=== PATIENT | male | born 1955 | race Caucasian/White ===

== ENCOUNTER 2024-04-08 14:55 | Emergency (ER) | payer SELFPAY ==
[~2024-04-08] VITALS: Ht 182.9 cm; Wt 65.8 kg
[2024-04-08] MEDS ORDERED: FUROSEMIDE 40 MG/4 ML VIAL ONE (15:24)
[2024-04-08] MEDS: FUROSEMIDE 40 MG/4 ML VIAL IV ONE (15:31)
[2024-04-08 15:46] LABS: BASOPHILS % (AUTO) 0.4 % (0.0-2.0); EOSINOPHILS # (AUTO) 0.1 K/uL (0.0-0.7); EOSINOPHILS % (AUTO) 0.6 % (0.0-6.0); HEMATOCRIT 34 % (39-51); HEMOGLOBIN 10.1 g/dL (13.5-17.5); LYMPHOCYTES # (AUTO) 1.3 K/uL (0.8-4.8); LYMPHOCYTES % (AUTO) 14.3 % (20.0-44.0); MEAN CORPUSCULAR HEMOGLOBIN 19 PG (26.0-33.0); MEAN CORPUSCULAR HGB CONC 30 g/dl (31.0-36.0); MEAN CORPUSCULAR VOLUME 65 fL (80-96); MONOCYTES # (AUTO) 0.8 K/uL (0.1-1.30); MONOCYTES % (AUTO) 8.2 % (2.0-12.0); NEUTROPHILS # (AUTO) 7.2 K/uL (1.8-8.9); NEUTROPHILS % (AUTO) 76.5 % (43.0-81.0); PLATELET COUNT (AUTO) 345 K/uL (150-450); RED BLOOD CELL COUNT(AUTO) 5.22 MIL/uL (4.5-6.0); RED CELL DISTRIBUTION WIDTH 18.6 % (11.5-15.0); WHITE BLOOD COUNT (AUTO) 9.4 K/uL (4.3-11.0)
[2024-04-08 15:53] LABS: CALCIUM, SERUM 8.2 mg/dL (8.5-10.1); CREATININE 0.8 mg/dL (0.6-1.3); POTASSIUM 3.5 mmol/L (3.5-5.1)
[2024-04-08 16:05] LABS: ALBUMIN 3.2 g/dL (3.4-5.0); BILIRUBIN,DIRECT 0.2 mg/dL (0.0-0.2); BILIRUBIN,TOTAL 0.9 mg/dL (0.2-1.0); TOTAL PROTEIN, SERUM 7.1 g/dL (6.4-8.2)
[2024-04-08 17:20] VITALS: BP 138/89; TEMP 98.5; O2SAT 98
[2024-04-08 18:30] LABS: ANISOCYTOSIS 1+; LYMPHOCYTES % (MANUAL) 13 % (16-48); MONOCYTES % (MANUAL) 4 % (0-11.0); NEUTROPHILS % (MANUAL) 83 (42-76); PLATELET ESTIMATE ADEQUATE
[2024-04-08 18:31] LABS: OVALOCYTES 1+
== END 2024-04-08 17:21 | disposition home or self-care (01) ==
LOC: ER 14:58
DX: I11.0 Hypertensive heart disease with heart failure (principal); I50.9 Heart failure, unspecified; J81.1 Chronic pulmonary edema; Z60.2 Problems related to living alone
CPT/HCPCS: 99284; 96374; 71045; 85025; 80048; 80076; 36415; 83880; 85007; J1940

== ENCOUNTER 2024-08-16 11:35 | Inpatient (IN) | payer MEDICARE, OTHER ==
[~2024-08-16] VITALS: Ht 182.9 cm; Wt 96.2 kg
[2024-08-16 12:17] LABS: BASOPHILS # (AUTO) 0.1 K/uL (0.0-0.2); BASOPHILS % (AUTO) 0.3 % (0.0-2.0); HEMATOCRIT 32 % (39-51); HEMOGLOBIN 9.9 g/dL (13.5-17.5); LYMPHOCYTES # (AUTO) 0.6 K/uL (0.8-4.8); LYMPHOCYTES % (AUTO) 2.4 % (20.0-44.0); MEAN CORPUSCULAR HEMOGLOBIN 22 PG (26.0-33.0); MEAN CORPUSCULAR HGB CONC 31 g/dl (31.0-36.0); MEAN CORPUSCULAR VOLUME 71 fL (80-96); MONOCYTES # (AUTO) 1.1 K/uL (0.1-1.30); MONOCYTES % (AUTO) 4.6 % (2.0-12.0); NEUTROPHILS % (AUTO) 92.7 % (43.0-81.0); PLATELET COUNT (AUTO) 451 K/uL (150-450); RED BLOOD CELL COUNT(AUTO) 4.44 MIL/uL (4.5-6.0); RED CELL DISTRIBUTION WIDTH 18.1 % (11.5-15.0); WHITE BLOOD COUNT (AUTO) 24.8 K/uL (4.3-11.0)
[2024-08-16 12:36] LABS: INR 1.13 (0.91-1.10); PARTIAL THROMBOPLASTIN TIME 25.4 SEC (24.3-34.3); PROTHROMBIN TIME 11.9 SECS (9.2-11.1)
[2024-08-16 12:44] LABS: CALCIUM, SERUM 8.1 mg/dL (8.5-10.1); CARBON DIOXIDE 28 mmol/L (21-32); CHLORIDE 99 mmol/L (98-107); CREATININE 0.9 mg/dL (0.6-1.3); GLUCOSE 103 mg/dL (74-106); POTASSIUM 3.7 mmol/L (3.5-5.1); SODIUM SERUM 135 mmol/L (136-145); UREA NITROGEN, BLOOD 8 mg/dL (7-18)
[2024-08-16 12:49] LABS: ALANINE AMINOTRANSFERASE 12 U/L (12-78); ALKALINE PHOSPHATASE 71 U/L (46-116); ASPARTATE AMINOTRANSFERASE 16 U/L (15-37); BILIRUBIN,DIRECT 0.3 mg/dL (0.0-0.2); BILIRUBIN,TOTAL 1.2 mg/dL (0.2-1.0); TOTAL PROTEIN, SERUM 6.9 g/dL (6.4-8.2)
[2024-08-16 12:57] LABS: THYROID STIMULATING HORMONE 0.37 uIU/mL (0.358-3.74)
[2024-08-16 13:06] LABS: APPEARANCE,URINE CLEAR (CLEAR); BILIRUBIN,URINE NEGATIVE (NEGATIVE); BLOOD, URINE NEGATIVE Ery/uL (NEGATIVE); COLOR,URINE YELLOW (YELLOW); KETONES,URINE NEGATIVE (NEGATIVE); LEUKOCYTE ESTERASE ,URINE NEGATIVE (NEGATIVE); NITRITE, URINE NEGATIVE (NEGATIVE); PROTEIN,URINE NEGATIVE (NEGATIVE); UGLUCOSE NEGATIVE (NEGATIVE)
[2024-08-16] MEDS ORDERED: CEFTRIAXONE 1GM BAG (ER ONLY) 50 ML IV ONE (13:09)
[2024-08-16] MEDS ORDERED: ASPIRIN 81 MG TAB.CHEW ONE (13:09)
[2024-08-16] MEDS: ASPIRIN 81 MG TAB.CHEW PO ONE (13:17)
[2024-08-16] MEDS: CEFTRIAXONE 1 G in IV D5W 50 ML IV ONE (13:17)
[2024-08-16] MEDS ORDERED: LISI10TA29 PO (13:25)
[2024-08-16] MEDS: AZITHROMYCIN 500 MG in IV D5W 250 ML IV ONE (13:34)
[2024-08-16 14:21] LABS: ADD URINE CULTURE NO; BACTERIA,URINE Few /HPF (None Seen); RBC,URINE 0-2 /HPF (0-2); SQUAMOUS EPITHELIAL CELL,UR Few /HPF (None Seen); WBC,URINE 0-2 /HPF (0-3)
[2024-08-16] MEDS ORDERED: ONDANSETRON HCL/PF 4 MG/2 ML VIAL IVP PRN (15:00)
[2024-08-16] MEDS ORDERED: MAGNESIUM HYDROXIDE 30 ML UDC PO PRN (15:00)
[2024-08-16] MEDS ORDERED: Z GUARD REMEDY 4 OZ OINT TP PRN (15:00)
[2024-08-16 16:00] VITALS: BP 126/96; TEMP 99.3; O2SAT 95
[2024-08-16] MEDS: ENOXAPARIN SODIUM 40 MG/0.4 ML DISP.SYRIN SQ SCH (16:44)
[2024-08-16] MEDS: FUROSEMIDE 40 MG/4 ML VIAL IV STA (16:54)
[2024-08-16] MEDS: PIPERACILLIN /TAZOBACTAM 3.375 G in IV D5W 50 ML IV SCH (17:53)
[2024-08-16] MEDS: ACETAMINOPHEN 325 MG TABLET PO PRN (17:56)
[2024-08-16 21:18] VITALS: BP 126/96; TEMP 98.1; O2SAT 95
[2024-08-17 01:11] VITALS: BP 115/81; TEMP 97.6; O2SAT 100
[2024-08-17 04:00] VITALS: BP 124/96; TEMP 98.1; O2SAT 100
[2024-08-17 06:40] LABS: BASOPHILS % (AUTO) 0.1 % (0.0-2.0); HEMATOCRIT 30 % (39-51); HEMOGLOBIN 9.5 g/dL (13.5-17.5); LYMPHOCYTES # (AUTO) 1.1 K/uL (0.8-4.8); LYMPHOCYTES % (AUTO) 5.6 % (20.0-44.0); MEAN CORPUSCULAR HEMOGLOBIN 22 PG (26.0-33.0); MEAN CORPUSCULAR HGB CONC 32 g/dl (31.0-36.0); MEAN CORPUSCULAR VOLUME 71 fL (80-96); MONOCYTES # (AUTO) 1.1 K/uL (0.1-1.30); MONOCYTES % (AUTO) 5.8 % (2.0-12.0); NEUTROPHILS # (AUTO) 17.2 K/uL (1.8-8.9); NEUTROPHILS % (AUTO) 88.5 % (43.0-81.0); PLATELET COUNT (AUTO) 411 K/uL (150-450); RED BLOOD CELL COUNT(AUTO) 4.26 MIL/uL (4.5-6.0); RED CELL DISTRIBUTION WIDTH 17.7 % (11.5-15.0); WHITE BLOOD COUNT (AUTO) 19.4 K/uL (4.3-11.0)
[2024-08-17 06:56] LABS: CALCIUM, SERUM 8.4 mg/dL (8.5-10.1); CREATININE 0.8 mg/dL (0.6-1.3); MAGNESIUM 1.7 mg/dL (1.8-2.4); PHOSPHORUS 2.7 mg/dL (2.5-4.9); POTASSIUM 3.4 mmol/L (3.5-5.1)
[2024-08-17 08:00] VITALS: BP 100/83; TEMP 97.8; O2SAT 100
[2024-08-17 08:02] LABS: THYROID STIMULATING HORMONE 0.21 uIU/mL (0.358-3.74)
[2024-08-17] MEDS: PANTOPRAZOLE 40 MG TABLET.DR PO SCH (08:39)
[2024-08-17] MEDS: MAGNESIUM OXIDE 400 MG TABLET PO ONE (10:02)
[2024-08-17] MEDS: POTASSIUM CHLORIDE 20 MEQ TAB.PRT.SR PO SCH (10:02)
[2024-08-17 12:00] VITALS: BP 135/86; TEMP 97.8; O2SAT 100
[2024-08-17] MEDS: SOD FERRIC GLUC 125 MG in IV NS 0.9% 100 ML IV SCH (13:25)
[2024-08-17 16:00] VITALS: BP 120/76; TEMP 98.4; O2SAT 98
[2024-08-17 20:00] VITALS: BP 118/56; TEMP 98.3; O2SAT 97
[2024-08-18] VITALS (8 sets, daily range): BP systolic 101–184; BP diastolic 62–136; TEMP 98.1–98.9; O2SAT 92–98
[2024-08-18] MEDS: ZOLPIDEM TARTRATE 5 MG TABLET PO PRN (01:41)
[2024-08-18 06:03] LABS: BASOPHILS % (AUTO) 0.2 % (0.0-2.0); HEMATOCRIT 32 % (39-51); HEMOGLOBIN 10.2 g/dL (13.5-17.5); LYMPHOCYTES # (AUTO) 1.1 K/uL (0.8-4.8); LYMPHOCYTES % (AUTO) 5.2 % (20.0-44.0); MEAN CORPUSCULAR HEMOGLOBIN 22 PG (26.0-33.0); MEAN CORPUSCULAR HGB CONC 32 g/dl (31.0-36.0); MEAN CORPUSCULAR VOLUME 69 fL (80-96); MONOCYTES # (AUTO) 1.1 K/uL (0.1-1.30); MONOCYTES % (AUTO) 5.7 % (2.0-12.0); NEUTROPHILS % (AUTO) 88.9 % (43.0-81.0); PLATELET COUNT (AUTO) 375 K/uL (150-450); RED BLOOD CELL COUNT(AUTO) 4.55 MIL/uL (4.5-6.0); RED CELL DISTRIBUTION WIDTH 17.7 % (11.5-15.0); WHITE BLOOD COUNT (AUTO) 20.2 K/uL (4.3-11.0)
[2024-08-18 06:12] LABS: CALCIUM, SERUM 8.4 mg/dL (8.5-10.1); CREATININE 0.8 mg/dL (0.6-1.3); MAGNESIUM 1.9 mg/dL (1.8-2.4); PHOSPHORUS 2.5 mg/dL (2.5-4.9); POTASSIUM 3.6 mmol/L (3.5-5.1)
[2024-08-18 06:22] LABS: THYROID STIMULATING HORMONE 0.38 uIU/mL (0.358-3.74)
[2024-08-18 07:58] LABS: BAND % (MANUAL) 1 % (0.0-5.0); LYMPHOCYTES % (MANUAL) 5 % (16-48); MONOCYTES % (MANUAL) 5 % (0-11.0); NEUTROPHILS % (MANUAL) 89 (42-76)
[2024-08-18 07:59] LABS: ANISOCYTOSIS 1+; HYPOCHROMASIA 1+; OVALOCYTES 1+; PLATELET ESTIMATE ADEQUATE
[2024-08-18] MEDS: METOPROLOL SUCCINATE 50 MG TAB.SR.24H PO SCH (10:29)
[2024-08-18] MEDS ORDERED: CEFEPIME 1 GM in IV D5W 50 ML IV SCH (17:30)
[2024-08-18] MEDS: LEVOFLOXACIN (250MG) 250 MG TABLET PO SCH (18:23)
[2024-08-18] MEDS: CEFEPIME 2 GM in IV D5W 100 ML IV SCH (18:53)
[2024-08-18] MEDS ORDERED: hydrALAZINE HCL IV 20 MG VIAL IV PRN (20:30)
[2024-08-19] VITALS: BP 103/80; TEMP 98; O2SAT 97
[2024-08-19 04:00] VITALS: BP 115/87; TEMP 97.6; O2SAT 98
[2024-08-19 06:32] LABS: BASOPHILS % (AUTO) 0.3 % (0.0-2.0); EOSINOPHILS # (AUTO) 0.1 K/uL (0.0-0.7); EOSINOPHILS % (AUTO) 0.5 % (0.0-6.0); HEMATOCRIT 33 % (39-51); HEMOGLOBIN 10.5 g/dL (13.5-17.5); LYMPHOCYTES # (AUTO) 1.3 K/uL (0.8-4.8); LYMPHOCYTES % (AUTO) 10.3 % (20.0-44.0); MEAN CORPUSCULAR HEMOGLOBIN 22 PG (26.0-33.0); MEAN CORPUSCULAR HGB CONC 32 g/dl (31.0-36.0); MEAN CORPUSCULAR VOLUME 70 fL (80-96); MONOCYTES % (AUTO) 7.5 % (2.0-12.0); NEUTROPHILS # (AUTO) 10.7 K/uL (1.8-8.9); NEUTROPHILS % (AUTO) 81.4 % (43.0-81.0); PLATELET COUNT (AUTO) 392 K/uL (150-450); RED BLOOD CELL COUNT(AUTO) 4.74 MIL/uL (4.5-6.0); RED CELL DISTRIBUTION WIDTH 17.8 % (11.5-15.0); WHITE BLOOD COUNT (AUTO) 13.2 K/uL (4.3-11.0)
[2024-08-19 08:00] VITALS: BP 113/75; TEMP 98.5; O2SAT 98
[2024-08-19] MEDS: LISINOPRIL (10MG) 10 MG TABLET PO SCH (08:23)
[2024-08-19 08:28] LABS: THYROID STIMULATING HORMONE 1.05 uIU/mL (0.358-3.74); URIC ACID 4.9 mg/dL (2.6-7.2)
[2024-08-19 08:29] LABS: CALCIUM, SERUM 8.6 mg/dL (8.5-10.1); CREATININE 0.7 mg/dL (0.6-1.3); MAGNESIUM 2.2 mg/dL (1.8-2.4); PHOSPHORUS 2.3 mg/dL (2.5-4.9); POTASSIUM 3.4 mmol/L (3.5-5.1)
[2024-08-19] MEDS: POTASSIUM CHLORIDE 20 MEQ TAB.PRT.SR PO SCH (11:25)
[2024-08-19] MEDS ORDERED: METO-357 PO ×2 (11:41→11:43)
[2024-08-19] MEDS ORDERED: LEVO500T90 PO (11:41)
[2024-08-19 12:00] VITALS: BP 130/90; TEMP 97.4; O2SAT 97
[2024-08-19 16:00] VITALS: BP 93/66; TEMP 98.2; O2SAT 98
[2024-08-19] MEDS: K PHOS NEUTRAL 250 MG TABLET PO ONE (16:26)
== END 2024-08-19 17:19 | disposition home health service (06) | DRG 871 ==
LOC: ER 11:46 → TELE1 13:04
PROVIDERS: ADMIT Nurse Practitioner Family; ATTEND Nurse Practitioner Family
DX: A41.9 Sepsis, unspecified organism (principal); I21.A1 Myocardial infarction type 2; J15.9 Unspecified bacterial pneumonia; E87.1 Hypo-osmolality and hyponatremia; I50.9 Heart failure, unspecified; I11.0 Hypertensive heart disease with heart failure; E78.5 Hyperlipidemia, unspecified; Z79.899 Other long term (current) drug therapy; N50.89 Other specified disorders of the male genital organs; D75.839 Thrombocytosis, unspecified; D50.9 Iron deficiency anemia, unspecified; E80.6 Other disorders of bilirubin metabolism; E66.9 Obesity, unspecified; Z68.28 Body mass index [BMI] 28.0-28.9, adult; N45.1 Epididymitis; F17.200 Nicotine dependence, unspecified, uncomplicated; I49.3 Ventricular premature depolarization; K76.0 Fatty (change of) liver, not elsewhere classified; N43.3 Hydrocele, unspecified; R62.7 Adult failure to thrive
CPT/HCPCS: 36415; 71045-TC; 71250-TC; 76870-TC; 80048-TC; 80061-TC; 80076-TC; 81001; 82728-TC; 82962-TC; 83540-TC; 83605-TC; 83735-TC; 83880; 84100-TC; 84439-TC; 84443-TC; 84481; 84484-TC; 84550-TC; 85025-TC; 85730-TC; 86850; 86850-TC; 86860; 86870; 86880; 86900; 86901; 86905; 86906; 86970; 87040-TC; 93307-TC; 93970-TC; 97112-TC; 97116-TC; 97530-TC; A4223; G0378; J0456; J0692; J0696; J1650; J2543; J2916; J7030; J7060

== ENCOUNTER 2024-10-09 08:35 | Inpatient (IN) | payer MEDICARE, OTHER ==
[~2024-10-09] VITALS: Ht 182.9 cm; Wt 94.0 kg
[~2024-10-09 08:35] MED LIST: LEVO500T90 PO; LISI10TA29 PO; METO-357 PO
[2024-10-09 09:02] LABS: BASOPHILS % (AUTO) 0.5 % (0.0-2.0); EOSINOPHILS % (AUTO) 0.6 % (0.0-6.0); HEMATOCRIT 36 % (39-51); LYMPHOCYTES # (AUTO) 1.3 K/uL (0.8-4.8); LYMPHOCYTES % (AUTO) 14.6 % (20.0-44.0); MEAN CORPUSCULAR HEMOGLOBIN 23 PG (26.0-33.0); MEAN CORPUSCULAR HGB CONC 31 g/dl (31.0-36.0); MEAN CORPUSCULAR VOLUME 74 fL (80-96); MONOCYTES # (AUTO) 0.6 K/uL (0.1-1.30); MONOCYTES % (AUTO) 6.7 % (2.0-12.0); NEUTROPHILS # (AUTO) 6.9 K/uL (1.8-8.9); NEUTROPHILS % (AUTO) 77.6 % (43.0-81.0); PLATELET COUNT (AUTO) 380 K/uL (150-450); RED BLOOD CELL COUNT(AUTO) 4.79 MIL/uL (4.5-6.0); RED CELL DISTRIBUTION WIDTH 19.6 % (11.5-15.0); WHITE BLOOD COUNT (AUTO) 8.8 K/uL (4.3-11.0)
[2024-10-09] MEDS ORDERED: ACETAMINOPHEN 325 MG TABLET PO PRN (09:30)
[2024-10-09] MEDS ORDERED: ONDANSETRON HCL/PF 4 MG/2 ML VIAL IVP PRN (09:30)
[2024-10-09] MEDS ORDERED: MORPHINE SULFATE INJ 2 MG/ML DISP.SYRIN IV PRN (09:30)
[2024-10-09] MEDS ORDERED: ALBUTEROL FS 2.5 MG/0.5 ML VIAL.NEB NEB PRN (09:30)
[2024-10-09] MEDS ORDERED: FUROSEMIDE 40 MG/4 ML VIAL ONE (09:42)
[2024-10-09 09:45] LABS: CALCIUM, SERUM 8.6 mg/dL (8.5-10.1); CARBON DIOXIDE 22 mmol/L (21-32); CHLORIDE 105 mmol/L (98-107); CREATININE 1.4 mg/dL (0.6-1.3); GLUCOSE 127 mg/dL (74-106); POTASSIUM 4.5 mmol/L (3.5-5.1); SODIUM SERUM 139 mmol/L (136-145); UREA NITROGEN, BLOOD 23 mg/dL (7-18)
[2024-10-09 09:46] LABS: LACTIC ACID 2.4 mmol/L (0.4-2.0)
[2024-10-09] MEDS: FUROSEMIDE 40 MG/4 ML VIAL IV ONE (09:57)
[2024-10-09 10:00] LABS: ALANINE AMINOTRANSFERASE 23 U/L (12-78); ALBUMIN 3.6 g/dL (3.4-5.0); ALKALINE PHOSPHATASE 76 U/L (46-116); ASPARTATE AMINOTRANSFERASE 25 U/L (15-37); BILIRUBIN,DIRECT 0.3 mg/dL (0.0-0.2); BILIRUBIN,TOTAL 1.2 mg/dL (0.2-1.0); NT-PRO BNP 5600 pg/mL (0-125); TOTAL PROTEIN, SERUM 8.1 g/dL (6.4-8.2)
[2024-10-09] MEDS ORDERED: LEVOFLOXACIN 750 MG /D5W 150ML 150 ML IV ONE (10:31)
[2024-10-09] MEDS: LEVOFLOXACIN 500 MG /D5W 100ML 500 MG in PREMIX 1 EA IV ONE (10:40)
[2024-10-09] MEDS ORDERED: CT SWABBABLE VALVE TRANS SET 1 EA INFUS.SET MC ONE (11:00)
[2024-10-09] MEDS ORDERED: IV NS 0.9% 250 ML IV ONE (11:00)
[2024-10-09] MEDS ORDERED: LEVOFLOXACIN 750 MG /D5W 150ML 750 MG in PREMIX 1 EA IV SCH (11:00)
[2024-10-09] MEDS ORDERED: IOHEXOL-350 100 ML VIAL IV ONE (11:00)
[2024-10-09 12:00] VITALS: BP 106/87; TEMP 97.4; O2SAT 100
[2024-10-09 12:16] LABS: IRON, SERUM 15 ug/dl (50-175); TOTAL IRON BINDING CAPACITY 513 ug/dl (250-450)
[2024-10-09] MEDS: LEVOFLOXACIN 250 MG /D5W 50 ML 250 MG in PREMIX 1 EA IV ONE (12:29)
[2024-10-09 12:30] LABS: FERRITIN 53 ng/mL (8-388)
[2024-10-09 16:00] VITALS: BP 113/89; TEMP 97.9; O2SAT 98
[2024-10-09] MEDS: FUROSEMIDE 20 MG/2 ML VIAL IV SCH (16:13)
[2024-10-09 20:00] VITALS: BP 113/89; TEMP 98.6; O2SAT 100
[2024-10-09] MEDS: HEPARIN SODIUM, PORCINE 5000 UNITS/1 ML VIAL SQ SCH (21:32)
[2024-10-10] VITALS: BP 126/93; TEMP 97.5; O2SAT 98
[2024-10-10 04:00] VITALS: BP 117/88; TEMP 97.7; O2SAT 100
[2024-10-10 07:31] LABS: BASOPHILS % (AUTO) 0.4 % (0.0-2.0); EOSINOPHILS % (AUTO) 0.4 % (0.0-6.0); HEMATOCRIT 33 % (39-51); HEMOGLOBIN 10.5 g/dL (13.5-17.5); LYMPHOCYTES # (AUTO) 1.5 K/uL (0.8-4.8); LYMPHOCYTES % (AUTO) 18.1 % (20.0-44.0); MEAN CORPUSCULAR HEMOGLOBIN 23 PG (26.0-33.0); MEAN CORPUSCULAR HGB CONC 32 g/dl (31.0-36.0); MEAN CORPUSCULAR VOLUME 73 fL (80-96); MONOCYTES # (AUTO) 0.7 K/uL (0.1-1.30); MONOCYTES % (AUTO) 8.7 % (2.0-12.0); NEUTROPHILS # (AUTO) 6.1 K/uL (1.8-8.9); NEUTROPHILS % (AUTO) 72.4 % (43.0-81.0); PLATELET COUNT (AUTO) 304 K/uL (150-450); RED BLOOD CELL COUNT(AUTO) 4.53 MIL/uL (4.5-6.0); WHITE BLOOD COUNT (AUTO) 8.4 K/uL (4.3-11.0)
[2024-10-10 07:50] LABS: ALBUMIN 3.1 g/dL (3.4-5.0); BILIRUBIN,TOTAL 1.9 mg/dL (0.2-1.0); CALCIUM, SERUM 8.3 mg/dL (8.5-10.1); CREATININE 1.3 mg/dL (0.6-1.3); MAGNESIUM 1.9 mg/dL (1.8-2.4); PHOSPHORUS 3.5 mg/dL (2.5-4.9); POTASSIUM 4.1 mmol/L (3.5-5.1); TOTAL PROTEIN, SERUM 7.1 g/dL (6.4-8.2)
[2024-10-10 08:00] VITALS: BP 120/94; TEMP 97.4; O2SAT 100
[2024-10-10] MEDS: METOPROLOL SUCCINATE 50 MG TAB.SR.24H PO SCH (08:23)
[2024-10-10] MEDS: LISINOPRIL (10MG) 10 MG TABLET PO SCH (08:23)
[2024-10-10 10:27] LABS: ABG BASE EXCESS -2.6 mmol/L (-2.0-3.0); ABG OXYGEN SATURATION 88.2 % (94.0-98.0); ABG PCO2 27.5 mmHg (35.0-48.0); ABG PH 7.476 (7.350-7.450); ABG PO2 55.6 mmHg (83.0-108.0); ABG TOTAL HEMOGLOBIN 11.8 G/dL (13.5-17.5); COHb 0.9 % (0.5-1.5); MetHb 0.3 % (0.0-1.5); O2Hb 87.1 % (94.0-97.0); SITE, ABG RIGHT RADIAL
[2024-10-10 12:00] VITALS: BP 112/85; TEMP 97.7; O2SAT 99
[2024-10-10 16:00] VITALS: BP 99/74; TEMP 97.9; O2SAT 96
[2024-10-10 20:00] VITALS: BP 113/88; TEMP 97.7; O2SAT 96
[2024-10-11] VITALS: BP 125/94; TEMP 97; O2SAT 97
[2024-10-11 04:00] VITALS: BP 104/72; TEMP 98.8; O2SAT 98
[2024-10-11 08:00] VITALS: BP 128/90; TEMP 98.6; O2SAT 99
[2024-10-11 10:17] LABS: BASOPHILS % (AUTO) 0.1 % (0.0-2.0); HEMATOCRIT 37 % (39-51); HEMOGLOBIN 11.3 g/dL (13.5-17.5); LYMPHOCYTES # (AUTO) 1.8 K/uL (0.8-4.8); LYMPHOCYTES % (AUTO) 11.9 % (20.0-44.0); MEAN CORPUSCULAR HEMOGLOBIN 23 PG (26.0-33.0); MEAN CORPUSCULAR HGB CONC 31 g/dl (31.0-36.0); MEAN CORPUSCULAR VOLUME 74 fL (80-96); MONOCYTES # (AUTO) 1.5 K/uL (0.1-1.30); MONOCYTES % (AUTO) 10.4 % (2.0-12.0); NEUTROPHILS # (AUTO) 11.4 K/uL (1.8-8.9); NEUTROPHILS % (AUTO) 77.6 % (43.0-81.0); PLATELET COUNT (AUTO) 301 K/uL (150-450); RED BLOOD CELL COUNT(AUTO) 4.97 MIL/uL (4.5-6.0); RED CELL DISTRIBUTION WIDTH 18.9 % (11.5-15.0); WHITE BLOOD COUNT (AUTO) 14.7 K/uL (4.3-11.0)
[2024-10-11 10:44] LABS: CALCIUM, SERUM 8.7 mg/dL (8.5-10.1); CREATININE 1.5 mg/dL (0.6-1.3); POTASSIUM 5.3 mmol/L (3.5-5.1)
[2024-10-11 10:51] LABS: ALBUMIN 3.3 g/dL (3.4-5.0); BILIRUBIN,TOTAL 3.4 mg/dL (0.2-1.0); MAGNESIUM 2.3 mg/dL (1.8-2.4); PHOSPHORUS 4.9 mg/dL (2.5-4.9); TOTAL PROTEIN, SERUM 7.2 g/dL (6.4-8.2)
[2024-10-11 12:00] VITALS: BP 111/80; TEMP 97.3; O2SAT 97
[2024-10-11 16:00] VITALS: BP 124/84; TEMP 97.4; O2SAT 97
[2024-10-11] MEDS: SODIUM ZIRCONIUM CYCLOSILICATE 10 GM POWD.PACK PO SCH (16:14)
[2024-10-11 20:00] VITALS: BP 117/87; TEMP 97.6; O2SAT 97
[2024-10-12] VITALS: BP 119/85; TEMP 98; O2SAT 96
[2024-10-12 04:00] VITALS: BP 122/86; TEMP 98; O2SAT 97
[2024-10-12 08:00] VITALS: BP 125/80; TEMP 98.4; O2SAT 94
[2024-10-12 08:43] LABS: BASOPHILS % (AUTO) 0.3 % (0.0-2.0); EOSINOPHILS % (AUTO) 0.3 % (0.0-6.0); HEMATOCRIT 36 % (39-51); HEMOGLOBIN 11.3 g/dL (13.5-17.5); LYMPHOCYTES # (AUTO) 1.8 K/uL (0.8-4.8); MEAN CORPUSCULAR HEMOGLOBIN 23 PG (26.0-33.0); MEAN CORPUSCULAR HGB CONC 32 g/dl (31.0-36.0); MEAN CORPUSCULAR VOLUME 72 fL (80-96); MONOCYTES # (AUTO) 0.9 K/uL (0.1-1.30); MONOCYTES % (AUTO) 7.9 % (2.0-12.0); NEUTROPHILS # (AUTO) 8.4 K/uL (1.8-8.9); NEUTROPHILS % (AUTO) 75.5 % (43.0-81.0); PLATELET COUNT (AUTO) 282 K/uL (150-450); RED BLOOD CELL COUNT(AUTO) 4.95 MIL/uL (4.5-6.0); RED CELL DISTRIBUTION WIDTH 19.2 % (11.5-15.0); WHITE BLOOD COUNT (AUTO) 11.2 K/uL (4.3-11.0)
[2024-10-12] MEDS: FUROSEMIDE 20 MG TABLET PO SCH (09:08)
[2024-10-12 09:11] LABS: BILIRUBIN,DIRECT 0.8 mg/dL (0.0-0.2); BILIRUBIN,TOTAL 3.1 mg/dL (0.2-1.0); TOTAL PROTEIN, SERUM 6.5 g/dL (6.4-8.2)
[2024-10-12 11:01] LABS: CALCIUM, SERUM 8.5 mg/dL (8.5-10.1); CREATININE 1.3 mg/dL (0.6-1.3); PHOSPHORUS 3.2 mg/dL (2.5-4.9); POTASSIUM 3.7 mmol/L (3.5-5.1)
[2024-10-12 11:02] LABS: MAGNESIUM 2.2 mg/dL (1.8-2.4)
[2024-10-12 16:00] VITALS: BP 96/60; TEMP 97.3; O2SAT 97
[2024-10-12 20:00] VITALS: BP 120/87; TEMP 98.1; O2SAT 95
[2024-10-13 04:00] VITALS: BP 106/74; TEMP 98.1; O2SAT 95
[2024-10-13 08:00] VITALS: BP 113/79; TEMP 98; O2SAT 97
[2024-10-13 08:07] LABS: INR 1.57 (0.91-1.10); PROTHROMBIN TIME 16.2 SECS (9.2-11.1)
[2024-10-13 08:23] LABS: ALBUMIN 2.7 g/dL (3.4-5.0); BILIRUBIN,DIRECT 0.7 mg/dL (0.0-0.2); BILIRUBIN,TOTAL 2.6 mg/dL (0.2-1.0); TOTAL PROTEIN, SERUM 6.1 g/dL (6.4-8.2)
[2024-10-13 08:27] LABS: APPEARANCE,URINE CLEAR (CLEAR); BILIRUBIN,URINE NEGATIVE (NEGATIVE); BLOOD, URINE NEGATIVE Ery/uL (NEGATIVE); COLOR,URINE DARK YELLOW (YELLOW); KETONES,URINE NEGATIVE (NEGATIVE); LEUKOCYTE ESTERASE ,URINE NEGATIVE (NEGATIVE); NITRITE, URINE NEGATIVE (NEGATIVE); PROTEIN,URINE NEGATIVE (NEGATIVE); UGLUCOSE NEGATIVE (NEGATIVE)
[2024-10-13 09:18] LABS: ADD URINE CULTURE NO; BACTERIA,URINE Rare /HPF (None Seen); RBC,URINE 0-2 /HPF (0-2); SQUAMOUS EPITHELIAL CELL,UR None Seen /HPF (None Seen); WBC,URINE 0-2 /HPF (0-3)
[2024-10-13 16:00] VITALS: BP 103/77; TEMP 97.5; O2SAT 97
[2024-10-14 04:00] VITALS: BP 112/84; TEMP 97.2; O2SAT 95
[2024-10-14 07:45] LABS: ALBUMIN 2.8 g/dL (3.4-5.0); BILIRUBIN,DIRECT 0.7 mg/dL (0.0-0.2); BILIRUBIN,TOTAL 2.5 mg/dL (0.2-1.0); TOTAL PROTEIN, SERUM 6.3 g/dL (6.4-8.2)
[2024-10-14 07:59] LABS: INR 1.33 (0.91-1.10); PROTHROMBIN TIME 13.8 SECS (9.2-11.1)
[2024-10-14 08:00] VITALS: BP 115/71; TEMP 97.6; O2SAT 98
[2024-10-14 16:00] VITALS: BP 115/71; TEMP 97.4; O2SAT 98
[2024-10-14 20:00] VITALS: BP 103/70; TEMP 97.3; O2SAT 99
[2024-10-15 00:15] LABS: HBSAG SCREEN Negative (Negative); HEPATITIS A AB, IgM Negative (Negative); HEPATITIS B CORE AB, IgM Negative (Negative)
[2024-10-15 04:00] VITALS: BP 101/66; TEMP 97.7; O2SAT 96
[2024-10-15 08:23] LABS: CALCIUM, SERUM 8.1 mg/dL (8.5-10.1); CREATININE 0.9 mg/dL (0.6-1.3); POTASSIUM 3.3 mmol/L (3.5-5.1)
[2024-10-15 08:27] LABS: ALBUMIN 2.9 g/dL (3.4-5.0); BILIRUBIN,TOTAL 2.4 mg/dL (0.2-1.0); TOTAL PROTEIN, SERUM 6.6 g/dL (6.4-8.2)
[2024-10-15 09:18] VITALS: BP 125/75
[2024-10-15] MEDS: POTASSIUM CHLORIDE 20 MEQ TAB.PRT.SR PO SCH (10:31)
== END 2024-10-15 13:24 | disposition home or self-care (01) | DRG 291 ==
LOC: ER 08:36 → TELE1 10:00 → MEDSG1 10-12 09:30
PROVIDERS: ADMIT Internal Medicine; ATTEND Nurse Practitioner Acute Care
DX: I13.0 Hypertensive heart and chronic kidney disease with heart failure and stage 1 through stage 4 chronic kidney disease, or unspecified chronic kidney disease (principal); I50.41 Acute combined systolic (congestive) and diastolic (congestive) heart failure; N17.0 Acute kidney failure with tubular necrosis; E87.20 Acidosis, unspecified; E87.1 Hypo-osmolality and hyponatremia; D68.9 Coagulation defect, unspecified; D50.9 Iron deficiency anemia, unspecified; N18.9 Chronic kidney disease, unspecified; I27.20 Pulmonary hypertension, unspecified; E78.5 Hyperlipidemia, unspecified; Z79.899 Other long term (current) drug therapy; E87.5 Hyperkalemia; Y92.9 Unspecified place or not applicable; M89.8X9 Other specified disorders of bone, unspecified site; T46.4X5A Adverse effect of angiotensin-converting-enzyme inhibitors, initial encounter; F17.200 Nicotine dependence, unspecified, uncomplicated; R16.1 Splenomegaly, not elsewhere classified
CPT/HCPCS: 36415; 71045-TC; 71250-TC; 74181-TC; 76700-TC; 76770-TC; 80048-TC; 80053-TC; 80076-TC; 81001; 82140-TC; 82550-TC; 82553; 82728-TC; 83540-TC; 83605-TC; 83735-TC; 83880; 84100-TC; 84300-TC; 84484-TC; 85025-TC; 85378-TC; 85610-TC; 87040-TC; 94799-TC; A4216; G0378; J1644; J1940; J1956; J7050; Q9967

== ENCOUNTER 2025-01-28 16:59 | Emergency (ER) | payer MEDICARE, OTHER ==
[~2025-01-28] VITALS: Ht 182.9 cm; Wt 68.0 kg
[~2025-01-28 16:59] MED LIST changes: -LEVO500T90 PO; -LISI10TA29 PO
[2025-01-28] MEDS ORDERED: CLIN300C12 PO (18:00)
[2025-01-28 18:12] VITALS: BP 130/80; TEMP 98.5; O2SAT 96
== END 2025-01-28 18:13 | disposition home or self-care (01) ==
LOC: ER 17:17
DX: L03.114 Cellulitis of left upper limb (principal); I11.0 Hypertensive heart disease with heart failure; I50.9 Heart failure, unspecified; E78.5 Hyperlipidemia, unspecified; Z60.2 Problems related to living alone; Z79.899 Other long term (current) drug therapy

== ENCOUNTER 2025-02-06 15:34 | Inpatient (IN) | payer MEDICARE, OTHER ==
[~2025-02-06] VITALS: Ht 180.3 cm; Wt 96.6 kg
[~2025-02-06 15:34] MED LIST changes: +CLIN300C12 PO
[2025-02-06] MEDS ORDERED: ASPIRIN 325 MG TABLET ONE (16:05)
[2025-02-06] MEDS ORDERED: FUROSEMIDE 20 MG/2 ML VIAL ONE (16:05)
[2025-02-06 16:12] LABS: BASOPHILS % (AUTO) 0.6 % (0.0-2.0); EOSINOPHILS # (AUTO) 0.1 K/uL (0.0-0.7); EOSINOPHILS % (AUTO) 0.6 % (0.0-6.0); HEMATOCRIT 35 % (39-51); HEMOGLOBIN 11.4 g/dL (13.5-17.5); LYMPHOCYTES # (AUTO) 1.9 K/uL (0.8-4.8); LYMPHOCYTES % (AUTO) 23.1 % (20.0-44.0); MEAN CORPUSCULAR HEMOGLOBIN 24 PG (26.0-33.0); MEAN CORPUSCULAR HGB CONC 32 g/dl (31.0-36.0); MEAN CORPUSCULAR VOLUME 72 fL (80-96); MONOCYTES % (AUTO) 11.9 % (2.0-12.0); NEUTROPHILS # (AUTO) 5.1 K/uL (1.8-8.9); NEUTROPHILS % (AUTO) 63.8 % (43.0-81.0); PLATELET COUNT (AUTO) 377 K/uL (150-450); RED BLOOD CELL COUNT(AUTO) 4.87 MIL/uL (4.5-6.0)
[2025-02-06] MEDS: ASPIRIN EC 325 MG TABLET.DR PO ONE (16:12)
[2025-02-06] MEDS: FUROSEMIDE 20 MG/2 ML VIAL IV ONE (16:12)
[2025-02-06 16:30] LABS: CARBON DIOXIDE 27 mmol/L (21-32); CHLORIDE 101 mmol/L (98-107); CREATININE 1.1 mg/dL (0.6-1.3); GLUCOSE 94 mg/dL (74-106); POTASSIUM 3.6 mmol/L (3.5-5.1); SODIUM SERUM 137 mmol/L (136-145); UREA NITROGEN, BLOOD 24 mg/dL (7-18)
[2025-02-06 16:39] LABS: NT-PRO BNP 4868 pg/mL (0-125)
[2025-02-06] MEDS ORDERED: METO-357 PO (17:17)
[2025-02-06] MEDS ORDERED: FURO-145 PO (17:17)
[2025-02-06] MEDS ORDERED: HYDR25TA4 PO (17:17)
[2025-02-06 18:29] LABS: EOSINOPHILS % (MANUAL) 1 % (0-4); LYMPHOCYTES % (MANUAL) 18 % (16-48); MONOCYTES % (MANUAL) 9 % (0-11.0); NEUTROPHILS % (MANUAL) 72 (42-76); PLATELET ESTIMATE ADEQUATE
[2025-02-06 18:30] LABS: ANISOCYTOSIS 1+; OVALOCYTES 1+; TARGET CELLS 1+
[2025-02-06] MEDS ORDERED: MAG HYDROX/AL HYDROX/SIMETH 30 ML UDC PO PRN (18:30)
[2025-02-06] MEDS ORDERED: ACETAMINOPHEN 325 MG TABLET PO PRN (18:30)
[2025-02-06] MEDS ORDERED: ONDANSETRON HCL/PF 4 MG/2 ML VIAL IVP PRN (18:30)
[2025-02-06] MEDS ORDERED: MAGNESIUM HYDROXIDE 30 ML UDC PO PRN (18:30)
[2025-02-06] MEDS: ENOXAPARIN SODIUM 40 MG/0.4 ML DISP.SYRIN SQ SCH (19:00)
[2025-02-06 20:00] VITALS: BP 128/98; TEMP 97.3; O2SAT 98
[2025-02-06] MEDS ORDERED: ENOXAPARIN SODIUM 40 MG/0.4 ML DISP.SYRIN SQ ONE (20:31)
[2025-02-07] VITALS: BP 125/75; TEMP 97.6; O2SAT 95
[2025-02-07 05:00] VITALS: BP 127/96; TEMP 98.1; O2SAT 97
[2025-02-07 06:21] LABS: BASOPHILS % (AUTO) 0.5 % (0.0-2.0); EOSINOPHILS # (AUTO) 0.1 K/uL (0.0-0.7); EOSINOPHILS % (AUTO) 1.4 % (0.0-6.0); HEMATOCRIT 37 % (39-51); HEMOGLOBIN 11.8 g/dL (13.5-17.5); LYMPHOCYTES # (AUTO) 1.6 K/uL (0.8-4.8); LYMPHOCYTES % (AUTO) 16.3 % (20.0-44.0); MEAN CORPUSCULAR HEMOGLOBIN 24 PG (26.0-33.0); MEAN CORPUSCULAR HGB CONC 32 g/dl (31.0-36.0); MEAN CORPUSCULAR VOLUME 73 fL (80-96); MONOCYTES # (AUTO) 1.1 K/uL (0.1-1.30); MONOCYTES % (AUTO) 11.4 % (2.0-12.0); NEUTROPHILS # (AUTO) 6.7 K/uL (1.8-8.9); NEUTROPHILS % (AUTO) 70.4 % (43.0-81.0); PLATELET COUNT (AUTO) 330 K/uL (150-450); RED BLOOD CELL COUNT(AUTO) 4.99 MIL/uL (4.5-6.0); RED CELL DISTRIBUTION WIDTH 18.8 % (11.5-15.0); WHITE BLOOD COUNT (AUTO) 9.5 K/uL (4.3-11.0)
[2025-02-07 06:52] LABS: CALCIUM, SERUM 8.2 mg/dL (8.5-10.1); CREATININE 0.8 mg/dL (0.6-1.3); MAGNESIUM 1.7 mg/dL (1.8-2.4); PHOSPHORUS 3.5 mg/dL (2.5-4.9); POTASSIUM 3.3 mmol/L (3.5-5.1)
[2025-02-07 08:00] VITALS: BP 112/61; TEMP 97.7; O2SAT 96
[2025-02-07] MEDS: FUROSEMIDE 20 MG/2 ML VIAL IV SCH (08:57)
[2025-02-07] MEDS: PANTOPRAZOLE 40 MG VIAL IV SCH (08:57)
[2025-02-07] MEDS: POTASSIUM CHLORIDE 20 MEQ TAB.PRT.SR PO ONE (10:43)
[2025-02-07 12:00] VITALS: BP 134/97; TEMP 97.9; O2SAT 96
[2025-02-07] MEDS: MAGNESIUM OXIDE 400 MG TABLET PO ONE (12:35)
[2025-02-07 16:00] VITALS: BP 117/85; TEMP 97.5; O2SAT 98
[2025-02-07] MEDS: LOSARTAN POTASSIUM 25 MG TABLET PO SCH (19:30)
[2025-02-07 20:00] VITALS: BP 106/83; TEMP 98.1; O2SAT 99
[2025-02-07] MEDS: METOPROLOL TARTRATE 25 MG TABLET PO SCH (20:43)
[2025-02-08] VITALS: BP 106/71; TEMP 97.5; TEMP 97.7; O2SAT 96
[2025-02-08 04:00] VITALS: BP 132/70; TEMP 97.7; TEMP 97.9; O2SAT 97; O2SAT 99
[2025-02-08 07:45] LABS: CALCIUM, SERUM 8.3 mg/dL (8.5-10.1); CREATININE 0.9 mg/dL (0.6-1.3); POTASSIUM 3.7 mmol/L (3.5-5.1)
[2025-02-08 08:00] VITALS: BP 110/73; TEMP 98.8; O2SAT 97
[2025-02-08] MEDS: PANTOPRAZOLE 40 MG TABLET.DR PO SCH (08:21)
[2025-02-08 12:00] VITALS: BP 121/82; TEMP 98.2; O2SAT 96
[2025-02-08 16:00] VITALS: BP 123/89; TEMP 97.9; O2SAT 95
[2025-02-08 20:00] VITALS: BP 114/65; TEMP 97.7; O2SAT 100
[2025-02-08] MEDS: TRAZODONE 50 MG TABLET PO SCH (22:23)
[2025-02-09] VITALS (8 sets, daily range): BP systolic 92–126; BP diastolic 53–93; TEMP 97.4–98.4; O2SAT 93–100
[2025-02-09 07:26] LABS: CALCIUM, SERUM 8.9 mg/dL (8.5-10.1); CREATININE 0.9 mg/dL (0.6-1.3); POTASSIUM 3.7 mmol/L (3.5-5.1)
[2025-02-10 04:57] VITALS: BP 104/56; TEMP 98.2; O2SAT 94
[2025-02-10 07:51] LABS: CALCIUM, SERUM 9.2 mg/dL (8.5-10.1); CREATININE 0.9 mg/dL (0.6-1.3)
[2025-02-10 08:00] VITALS: BP 109/77; TEMP 98.2; O2SAT 98
[2025-02-10 08:49] LABS: BASOPHILS # (AUTO) 0.1 K/uL (0.0-0.2); BASOPHILS % (AUTO) 0.8 % (0.0-2.0); EOSINOPHILS # (AUTO) 0.2 K/uL (0.0-0.7); EOSINOPHILS % (AUTO) 2.3 % (0.0-6.0); HEMATOCRIT 38 % (39-51); LYMPHOCYTES # (AUTO) 1.2 K/uL (0.8-4.8); LYMPHOCYTES % (AUTO) 15.7 % (20.0-44.0); MEAN CORPUSCULAR HEMOGLOBIN 23 PG (26.0-33.0); MEAN CORPUSCULAR HGB CONC 31 g/dl (31.0-36.0); MEAN CORPUSCULAR VOLUME 72 fL (80-96); MONOCYTES # (AUTO) 0.7 K/uL (0.1-1.30); MONOCYTES % (AUTO) 9.1 % (2.0-12.0); NEUTROPHILS # (AUTO) 5.6 K/uL (1.8-8.9); NEUTROPHILS % (AUTO) 72.1 % (43.0-81.0); PLATELET COUNT (AUTO) 362 K/uL (150-450); RED BLOOD CELL COUNT(AUTO) 5.31 MIL/uL (4.5-6.0); RED CELL DISTRIBUTION WIDTH 18.9 % (11.5-15.0); WHITE BLOOD COUNT (AUTO) 7.8 K/uL (4.3-11.0)
[2025-02-10 10:44] LABS: INR 1.15 (0.91-1.10); PARTIAL THROMBOPLASTIN TIME 25.3 SEC (24.3-34.3); PROTHROMBIN TIME 12.1 SECS (9.2-11.1)
[2025-02-10] MEDS ORDERED: IV NS 0.9% 500 ML IV ONE (11:05)
[2025-02-10] MEDS ORDERED: IV SET PRIMARY PUMP SET 1 EA INFUS.SET MC ONE (11:05)
[2025-02-10] MEDS ORDERED: IODIXANOL 150 ML IV ONE (11:06)
[2025-02-10] MEDS ORDERED: LIDOCAINE HCL/MPF 1% 30 ML VIAL IJ ONE (11:06)
[2025-02-10] MEDS ORDERED: NITROGLYCERIN IN 5 % DEXTROSE 250 ML IV ONE (11:38)
[2025-02-10] MEDS ORDERED: FENTANYL PF 100MCG/2ML AMPUL ONE (12:28)
[2025-02-10] MEDS ORDERED: MIDAZOLAM HCL 2 MG/2ML VIAL ONE (12:29)
[2025-02-10 16:00] VITALS: BP 129/94; TEMP 97.7; O2SAT 96
[2025-02-10 20:00] VITALS: BP 109/85; TEMP 98.4; O2SAT 95
[2025-02-11 04:00] VITALS: BP 105/63; TEMP 97.9; O2SAT 95
[2025-02-11 07:06] LABS: CALCIUM, SERUM 9.1 mg/dL (8.5-10.1); CREATININE 0.7 mg/dL (0.6-1.3); POTASSIUM 3.9 mmol/L (3.5-5.1)
[2025-02-11 08:00] VITALS: BP 91/59; TEMP 97.5; O2SAT 92
[2025-02-11] MEDS ORDERED: METO-357 PO (09:03)
[2025-02-11] MEDS ORDERED: EMPA25TA PO (09:03)
[2025-02-11] MEDS ORDERED: LOSA25TA27 PO (09:03)
[2025-02-11] MEDS ORDERED: FURO-144 PO (09:03)
[2025-02-11 12:35] VITALS: BP 99/65; TEMP 97.9; O2SAT 95
== END 2025-02-11 14:30 | disposition home health service (06) | DRG 286 ==
LOC: ER 15:52 → TELE 20:09
PROVIDERS: ATTEND Internal Medicine
PROC: 4A023N7 Measurement of Cardiac Sampling and Pressure, Left Heart, Percutaneous Approach (ICD-10-PCS; principal; 2025-02-10)
PROC: B211YZZ Fluoroscopy of Multiple Coronary Arteries using Other Contrast (ICD-10-PCS; 2025-02-10)
PROC: B34HZZZ Ultrasonography of Right Upper Extremity Arteries (ICD-10-PCS; 2025-02-10)
DX: I11.0 Hypertensive heart disease with heart failure (principal); I50.43 Acute on chronic combined systolic (congestive) and diastolic (congestive) heart failure; J96.01 Acute respiratory failure with hypoxia; E78.5 Hyperlipidemia, unspecified; Z79.899 Other long term (current) drug therapy; Z91.148 Patient's other noncompliance with medication regimen for other reason; I42.9 Cardiomyopathy, unspecified; F17.200 Nicotine dependence, unspecified, uncomplicated; D50.9 Iron deficiency anemia, unspecified; E87.6 Hypokalemia; E83.42 Hypomagnesemia
CPT/HCPCS: 36415; 71045-TC; 80048-TC; 83735-TC; 83880; 84100-TC; 84484-TC; 85025-TC; 85610-TC; 85730-TC; 93307-TC; 97112-TC; 97116-TC; 97530-TC; A4223; G0378; J1644; J1650; J1938; J2250; J2470; J3010; J3490; J7040; Q9967